=== PATIENT | male | born 1955 | race Caucasian/White ===

== ENCOUNTER 2022-10-30 11:00 | Inpatient (IN) | payer OTHER ==
[~2022-10-30] VITALS: Ht 182.9 cm; Wt 67.6 kg
[2022-10-30] VITALS (15 sets, daily range): BP systolic 81–120; PULSE 46–99; RESP 13–26; TEMP 81.1–96.7; O2SAT 90–100
[2022-10-30] MEDS ORDERED: VECURONIUM BROMIDE 10 MG/VIAL (NORCURON) ONE (11:01)
[2022-10-30] MEDS ORDERED: DEXTROSE 50% JECT 50 ML DISP.SYRIN ONE (11:12)
[2022-10-30] MEDS ORDERED: DEXTROSE 50% JECT 50 ML DISP.SYRIN IVP ONE (11:15)
[2022-10-30] MEDS ORDERED: NACL 0.9% 1,000 ML IV ONE ×2 (11:15→12:45)
[2022-10-30] MEDS ORDERED: SER25 PO (11:34)
[2022-10-30 11:49] LABS: BILIRUBIN,URINE NEGATIVE (NEGATIVE); BLOOD, URINE 1+ (NEGATIVE); CLARITY/URINE CLEAR (CLEAR); COLOR,URINE YELLOW (YELLOW); GLUCOSE,URINE NEGATIVE (NEGATIVE); KETONES,URINE TRACE (NEGATIVE); LEUKOCYTE ESTERASE ,URINE NEGATIVE (NEGATIVE); NITRITE, URINE NEGATIVE (NEGATIVE); PH,URINE 5.5 (5.0-8.0); PROTEIN URINE NEGATIVE (NEGATIVE); UROBILINOGEN,URINE 0.2 (0.2-1.0)
[2022-10-30 11:58] LABS: BACTERIA,URINE FEW /HPF (None Seen); WBC,URINE 0-3 /HPF (0-3)
[2022-10-30 11:59] LABS: MUCUS,URINE 1+ /LPF (None Seen)
[2022-10-30 12:15] LABS: BARBITURATE, URINE NEGATIVE (NEG <=200); BENZODIAZEPINE, URINE POSITIVE (NEG <=150); CANNABINOID, URINE POSITIVE (NEG <=50); COCAINE, URINE NEGATIVE (NEG <=150); METHAMPHETAMINES SCREEN,URINE NEGATIVE (NEG <=500); PHENCYCLIDINE SCREEN,URINE NEGATIVE (NEG <=25); URINE AMPHETAMINE NEGATIVE (NEG <=500); URINE METHADONE NEGATIVE (NEG <=200)
[2022-10-30 12:16] LABS: OPIATE, URINE NEGATIVE (NEG <=100); UR TRICYCLIC ANTIDEPRESSANTS NEGATIVE (NEG <=300); URINE OXYCODONE SCREEN NEGATIVE (NEG <=100); URINE PROPOXYPHENE SCREEN NEGATIVE (NEG <=300)
[2022-10-30 12:20] LABS: BASOPHILS % (AUTO) 0.4 % (0.0-2.0); EOSINOPHILS % (AUTO) 1.1 % (0.0-4.0); HEMATOCRIT 24.7 % (36-54); HEMOGLOBIN 8.3 g/dL (14.0-18.0); LYMPHOCYTES # (AUTO) 0.5 K/uL (1.0-5.5); LYMPHOCYTES % (AUTO) 25.1 % (20.5-51.5); MEAN CORPUSCULAR HEMOGLOBIN 30 pg (27-31); MEAN CORPUSCULAR HGB CONC 33 % (32-36); MEAN CORPUSCULAR VOLUME 90 fL (79.0-98.0); MONOCYTES # (AUTO) 0.1 K/uL (0.0-1.0); MONOCYTES % (AUTO) 4.6 % (1.7-9.3); NEUTROPHILS # (AUTO) 1.4 K/uL (1.8-7.7); NEUTROPHILS % (AUTO) 68.8 % (40.0-70.0); PLATELET COUNT (AUTO) 60 K/uL (130-430); RED BLOOD CELL COUNT(AUTO) 2.74 MIL/uL (4.2-6.2); RED CELL DISTRIBUTION WIDTH 20.2 % (9.0-15.0); WHITE BLOOD COUNT (AUTO) 2.1 K/uL (4.8-10.8)
[2022-10-30 12:28] LABS: INR 1.6 (0.80-1.20); PROTHROMBIN TIME 16.3 SECS (9.5-12.5)
[2022-10-30 12:31] LABS: ACETAMINOPHEN 11 ug/mL (1-30); ALANINE AMINOTRANSFERASE 42 U/L (12-78); ALBUMIN 1.3 g/dL (3.4-4.8); ANION GAP 10 (5-15); ASPARTATE AMINOTRANSFERASE 80 U/L (10-37); C-REACTIVE PROTEIN QUANT 1.7 mg/dL (0-0.5); CHLORIDE 111 mmol/L (98-107); CREATININE 0.96 mg/dL (0.55-1.30); GFR AFRICAN AMERICAN 100 mL/min (>90); GLUCOSE 162 mg/dL (70-99); TOTAL BILIRUBIN 0.8 mg/dL (0.0-1.0); UREA NITROGEN, BLOOD 5 mg/dL (8-21)
[2022-10-30 12:33] LABS: ALCOHOL, BLOOD < 3 mg/dL (<10); CALCIUM 6.8 mg/dL (8.4-11.0)
[2022-10-30] MEDS ORDERED: NOREPINEPHRINE BITARTRATE 4 MG in NS 246 ML IV ONE (12:45)
[2022-10-30 13:14] LABS: CKMB RELATIVE INDEX 5.6 (0.0-2.9); CREATINE KINASE MB 32.3 ng/mL (0-3.6)
[2022-10-30 13:26] LABS: ACETONE, SERUM NEGATIVE (NEGATIVE)
[2022-10-30] MEDS ORDERED: ONDANSETRON HCL 4 MG/2 ML VIAL IVP PRN (14:45)
[2022-10-30] MEDS ORDERED: DOCUSATE SODIUM 100 MG CAPSULE PO PRN (14:45)
[2022-10-30] MEDS ORDERED: MAGNESIUM SULFATE 50 ML IV PRN (14:45)
[2022-10-30] MEDS ORDERED: POTASSIUM CHLORIDE 20 MEQ TAB.PRT.SR PO PRN (14:45)
[2022-10-30] MEDS ORDERED: MORPHINE 2 MG/ML INJ. SYRINGE IVP PRN (14:45)
[2022-10-30] MEDS ORDERED: ZOLPIDEM TARTRATE 5 MG TABLET PO PRN (14:45)
[2022-10-30] MEDS ORDERED: MUPIROCIN 2% TOPICAL OINTMENT 22 GM NS PRN (14:45)
[2022-10-30] MEDS ORDERED: NALOXONE HCL 0.4 MG/ML AMP (NARCAN) IVP PRN ×2 (14:45)
[2022-10-30] MEDS ORDERED: ACETAMINOPHEN 325 MG TABLET PO PRN ×2 (14:45→15:00)
[2022-10-30] MEDS ORDERED: VANCOMYCIN HCL 1,250 MG in NS 250 ML IV ONE (15:00)
[2022-10-30] MEDS ORDERED: CALCIUM GLUCONATE 1 GM in NS 100 ML IV ONE (16:00)
[2022-10-30 16:50] LABS: TOTAL IRON BIND. CAPACITY 77 ug/dL (250-450)
[2022-10-30] MEDS: D5/0.45 NS 1,000 ML IV SCH (17:53)
[2022-10-30] MEDS ORDERED: PIPERACILLIN/TAZO 3.375/DEX-IS 50 ML IV SCH (18:00)
[2022-10-30] MEDS ORDERED: DOPamine PREMIX 250 ML IV PRN (19:00)
[2022-10-30] MEDS: VANCOMYCIN HCL 750 MG in NS 250 ML IV SCH (19:44)
[2022-10-30] MEDS: CEFEPIME 2 GM in D5W 100 ML IV SCH (20:56)
[2022-10-30] MEDS: QUEtiapine FUMARATE 25 MG TABLET PO SCH (20:57)
[2022-10-30] MEDS ORDERED: NOREPINEPHRINE BITARTRATE 4 MG in D5W 246 ML IV PRN (21:00)
[2022-10-31] VITALS (31 sets, daily range): BP systolic 75–148; PULSE 42–110; RESP 1–26; TEMP 96.8–98.1; O2SAT 93–98
[2022-10-31] MEDS: D5/0.45 NS 1,000 ML IV SCH ×3 (01:12→16:25)
[2022-10-31] MEDS: LORazepam 2 MG/ML VIAL IVP PRN ×4 (01:46→20:30)
[2022-10-31] MEDS: MORPHINE 2 MG/ML INJ. SYRINGE IVP PRN ×2 (03:43→23:59)
[2022-10-31] MEDS: VANCOMYCIN HCL 750 MG in NS 250 ML IV SCH ×2 (05:53→18:45)
[2022-10-31 06:27] LABS: BASOPHILS # (AUTO) 0.1 K/uL (0.0-0.2); BASOPHILS % (AUTO) 1.2 % (0.0-2.0); HEMATOCRIT 35.4 % (36-54); HEMOGLOBIN 11.9 g/dL (14.0-18.0); LYMPHOCYTES # (AUTO) 0.6 K/uL (1.0-5.5); LYMPHOCYTES % (AUTO) 6.4 % (20.5-51.5); MEAN CORPUSCULAR HEMOGLOBIN 30 pg (27-31); MEAN CORPUSCULAR HGB CONC 34 % (32-36); MEAN CORPUSCULAR VOLUME 89 fL (79.0-98.0); MONOCYTES # (AUTO) 0.8 K/uL (0.0-1.0); MONOCYTES % (AUTO) 8.3 % (1.7-9.3); NEUTROPHILS # (AUTO) 7.6 K/uL (1.8-7.7); NEUTROPHILS % (AUTO) 84.1 % (40.0-70.0); PLATELET COUNT (AUTO) 134 K/uL (130-430); RED BLOOD CELL COUNT(AUTO) 3.97 MIL/uL (4.2-6.2); RED CELL DISTRIBUTION WIDTH 20.3 % (9.0-15.0); WHITE BLOOD COUNT (AUTO) 9.1 K/uL (4.8-10.8)
[2022-10-31 06:49] LABS: CREATININE 1.31 mg/dL (0.55-1.30)
[2022-10-31 06:55] LABS: INR 1.2 (0.80-1.20); PROTHROMBIN TIME 12.5 SECS (9.5-12.5)
[2022-10-31] MEDS ORDERED: LEVOTHYROXINE SODIUM 100 MCG/5 ML VIAL IVP ONE ×3 (08:00→08:30)
[2022-10-31 08:06] LABS: FERRITIN 1607 ng/mL (30-400)
[2022-10-31] MEDS ORDERED: methylPREDNISolone SOD SUCC/PF 62.5 MG/ML VIAL IVP ONE (08:15)
[2022-10-31] MEDS: CEFEPIME 2 GM in D5W 100 ML IV SCH ×2 (08:21→22:01)
[2022-10-31] MEDS: PANTOPRAZOLE SODIUM 40 MG/VIAL (PROTONIX) IVP SCH (08:25)
[2022-10-31] MEDS: HEPARIN SODIUM,PORCINE 5,000 UNITS/ML VIAL SUBCUT SCH ×2 (08:34→22:02)
[2022-10-31] MEDS: LACTULOSE 20 GM/30 ML UDC PO SCH ×2 (09:37→22:01)
[2022-10-31] MEDS: ALBUMIN HUMAN 25% 50 ML IV SCH ×3 (11:15→22:02)
[2022-10-31] MEDS: methylPREDNISolone SOD SUCC/PF 62.5 MG/ML VIAL IVP SCH ×2 (11:17→18:45)
[2022-10-31] MEDS: QUEtiapine FUMARATE 25 MG TABLET PO SCH (22:01)
[2022-11-01] VITALS (39 sets, daily range): BP systolic 72–141; PULSE 83–116; RESP 12–20; TEMP 96.9–97.6; O2SAT 90–98
[2022-11-01] MEDS: LORazepam 2 MG/ML VIAL IVP PRN (00:05)
[2022-11-01 00:06] LABS: FOLATE (FOLIC ACID) 5.1 ng/mL (>3.0)
[2022-11-01] MEDS: methylPREDNISolone SOD SUCC/PF 62.5 MG/ML VIAL IVP SCH ×2 (00:54→06:31)
[2022-11-01 05:46] LABS: BASOPHILS % (AUTO) 0.1 % (0.0-2.0); HEMOGLOBIN 10.1 g/dL (14.0-18.0); LYMPHOCYTES # (AUTO) 0.6 K/uL (1.0-5.5); LYMPHOCYTES % (AUTO) 4.8 % (20.5-51.5); MEAN CORPUSCULAR HEMOGLOBIN 30 pg (27-31); MEAN CORPUSCULAR HGB CONC 34 % (32-36); MEAN CORPUSCULAR VOLUME 90 fL (79.0-98.0); MONOCYTES # (AUTO) 0.1 K/uL (0.0-1.0); MONOCYTES % (AUTO) 1.1 % (1.7-9.3); NEUTROPHILS # (AUTO) 11.2 K/uL (1.8-7.7); PLATELET COUNT (AUTO) 101 K/uL (130-430); RED BLOOD CELL COUNT(AUTO) 3.34 MIL/uL (4.2-6.2); RED CELL DISTRIBUTION WIDTH 20.1 % (9.0-15.0); WHITE BLOOD COUNT (AUTO) 11.9 K/uL (4.8-10.8)
[2022-11-01 06:02] LABS: CALCIUM 7.5 mg/dL (8.4-11.0); CREATININE 1.57 mg/dL (0.55-1.30)
[2022-11-01 06:06] LABS: ALBUMIN 2.7 g/dL (3.4-4.8); TOTAL BILIRUBIN 0.9 mg/dL (0.0-1.0)
[2022-11-01] MEDS: VANCOMYCIN HCL 750 MG in NS 250 ML IV SCH (06:32)
[2022-11-01] MEDS: D5/0.45 NS 1,000 ML IV SCH ×2 (06:33→12:09)
[2022-11-01] MEDS ORDERED: methylPREDNISolone SOD SUCC/PF 62.5 MG/ML VIAL IVP SCH (09:00)
[2022-11-01] MEDS: LEVOTHYROXINE SODIUM 100 MCG/5 ML VIAL IVP SCH (09:00)
[2022-11-01] MEDS: CEFEPIME 2 GM in D5W 100 ML IV SCH ×2 (09:06→21:13)
[2022-11-01] MEDS: LACTULOSE 20 GM/30 ML UDC PO SCH ×2 (09:06→21:15)
[2022-11-01] MEDS: METHYLPREDNISOLONE SOD SUCC 40 MG/ML VIAL IVP SCH ×2 (09:07→21:14)
[2022-11-01] MEDS: PANTOPRAZOLE SODIUM 40 MG/VIAL (PROTONIX) IVP SCH (09:07)
[2022-11-01] MEDS: HEPARIN SODIUM,PORCINE 5,000 UNITS/ML VIAL SUBCUT SCH ×2 (09:08→21:17)
[2022-11-01] MEDS: THIAMINE HCL 100 MG TABLET PO SCH (09:24)
[2022-11-01] MEDS: DOPamine PREMIX 250 ML IV PRN ×2 (12:08→21:46)
[2022-11-01] MEDS ORDERED: DEXTROSE 50% JECT 50 ML DISP.SYRIN IVP PRN (12:15)
[2022-11-01] MEDS ORDERED: D5W 1,000 ML IV PRN (12:15)
[2022-11-01] MEDS: INSULIN REGULAR, HUMAN 100 UNITS/ML, 3 ML VIAL (humuLIN R) SUBCUT PRN ×2 (12:31→17:30)
[2022-11-01] MEDS: QUEtiapine FUMARATE 25 MG TABLET PO SCH (21:15)
[2022-11-01] MEDS: PROPOFOL DRIP 100 ML IV PRN (21:50)
[2022-11-02] VITALS (42 sets, daily range): BP systolic 83–138; PULSE 71–93; RESP 11–28; TEMP 95.1–97.8; O2SAT 95–99
[2022-11-02] MEDS: VANCOMYCIN HCL 1,000 MG in NS 250 ML IV SCH (05:33)
[2022-11-02] MEDS: INSULIN REGULAR, HUMAN 100 UNITS/ML, 3 ML VIAL (humuLIN R) SUBCUT PRN (05:39)
[2022-11-02 05:40] LABS: BASOPHILS % (AUTO) 0.1 % (0.0-2.0); EOSINOPHILS % (AUTO) 0.1 % (0.0-4.0); HEMATOCRIT 25.3 % (36-54); HEMOGLOBIN 8.2 g/dL (14.0-18.0); LYMPHOCYTES # (AUTO) 0.4 K/uL (1.0-5.5); LYMPHOCYTES % (AUTO) 2.1 % (20.5-51.5); MEAN CORPUSCULAR HEMOGLOBIN 29 pg (27-31); MEAN CORPUSCULAR HGB CONC 33 % (32-36); MEAN CORPUSCULAR VOLUME 90 fL (79.0-98.0); MONOCYTES # (AUTO) 0.3 K/uL (0.0-1.0); MONOCYTES % (AUTO) 1.5 % (1.7-9.3); NEUTROPHILS # (AUTO) 17.9 K/uL (1.8-7.7); NEUTROPHILS % (AUTO) 96.2 % (40.0-70.0); PLATELET COUNT (AUTO) 83 K/uL (130-430); RED CELL DISTRIBUTION WIDTH 20.7 % (9.0-15.0); WHITE BLOOD COUNT (AUTO) 18.6 K/uL (4.8-10.8)
[2022-11-02 06:03] LABS: PROTHROMBIN TIME 10.4 SECS (9.5-12.5)
[2022-11-02 06:05] LABS: ALBUMIN 2.2 g/dL (3.4-4.8); CALCIUM 7.5 mg/dL (8.4-11.0); CREATININE 1.48 mg/dL (0.55-1.30); TOTAL BILIRUBIN 0.7 mg/dL (0.0-1.0)
[2022-11-02] MEDS: HEPARIN SODIUM,PORCINE 5,000 UNITS/ML VIAL SUBCUT SCH ×2 (07:37→21:31)
[2022-11-02] MEDS ORDERED: LEVOTHYROXINE SODIUM 100 MCG/5 ML VIAL IVP SCH (09:00)
[2022-11-02] MEDS: LEVOTHYROXINE SODIUM 100 MCG/5 ML VIAL IVP SCH (09:57)
[2022-11-02] MEDS: METHYLPREDNISOLONE SOD SUCC 40 MG/ML VIAL IVP SCH ×2 (09:57→21:28)
[2022-11-02] MEDS: THIAMINE HCL 100 MG TABLET PO SCH (09:57)
[2022-11-02] MEDS: PANTOPRAZOLE SODIUM 40 MG/VIAL (PROTONIX) IVP SCH (09:57)
[2022-11-02] MEDS: CEFEPIME 2 GM in D5W 100 ML IV SCH ×2 (09:57→21:27)
[2022-11-02] MEDS: LACTULOSE 20 GM/30 ML UDC PO SCH ×2 (09:57→21:29)
[2022-11-02] MEDS: FLUCONAZOLE 200 mg/ NS 100 ML IV SCH (13:34)
[2022-11-02] MEDS: PROPOFOL DRIP 100 ML IV PRN ×2 (14:00→18:49)
[2022-11-02] MEDS: DOPamine PREMIX 250 ML IV PRN (19:31)
[2022-11-02] MEDS: QUEtiapine FUMARATE 25 MG TABLET PO SCH (21:29)
[2022-11-03] VITALS (33 sets, daily range): BP systolic 91–120; PULSE 64–97; RESP 14–28; TEMP 96.1–97.5; O2SAT 91–99
[2022-11-03] MEDS: VANCOMYCIN HCL 1,000 MG in NS 250 ML IV SCH (05:43)
[2022-11-03 06:19] LABS: LYMPHOCYTES # (AUTO) 0.4 K/uL (1.0-5.5); LYMPHOCYTES % (AUTO) 2.6 % (20.5-51.5); NEUTROPHILS # (AUTO) 15.8 K/uL (1.8-7.7)
[2022-11-03 06:37] LABS: BASOPHILS # (AUTO) 0.1 K/uL (0.0-0.2); BASOPHILS % (AUTO) 0.5 % (0.0-2.0); HEMATOCRIT 24.6 % (36-54); MEAN CORPUSCULAR HEMOGLOBIN 30 pg (27-31); MEAN CORPUSCULAR HGB CONC 33 % (32-36); MEAN CORPUSCULAR VOLUME 91 fL (79.0-98.0); MONOCYTES # (AUTO) 0.1 K/uL (0.0-1.0); MONOCYTES % (AUTO) 0.7 % (1.7-9.3); NEUTROPHILS % (AUTO) 96.2 % (40.0-70.0); PLATELET COUNT (AUTO) 84 K/uL (130-430); RED CELL DISTRIBUTION WIDTH 20.9 % (9.0-15.0); WHITE BLOOD COUNT (AUTO) 16.4 K/uL (4.8-10.8)
[2022-11-03 06:57] LABS: CREATININE 1.46 mg/dL (0.55-1.30)
[2022-11-03] MEDS ORDERED: POTASSIUM CHLORIDE 40 MEQ in D5W 250 ML IV ONE (08:00)
[2022-11-03] MEDS: HEPARIN SODIUM,PORCINE 5,000 UNITS/ML VIAL SUBCUT SCH ×2 (09:00→21:00)
[2022-11-03] MEDS: CEFEPIME 2 GM in D5W 100 ML IV SCH ×2 (09:08→21:46)
[2022-11-03] MEDS: METHYLPREDNISOLONE SOD SUCC 40 MG/ML VIAL IVP SCH ×2 (09:08→21:46)
[2022-11-03] MEDS: PANTOPRAZOLE SODIUM 40 MG/VIAL (PROTONIX) IVP SCH (09:08)
[2022-11-03] MEDS: LEVOTHYROXINE SODIUM 100 MCG/5 ML VIAL IVP SCH (09:09)
[2022-11-03] MEDS: THIAMINE HCL 100 MG TABLET PO SCH (09:09)
[2022-11-03] MEDS: LACTULOSE 20 GM/30 ML UDC PO SCH ×2 (09:09→21:46)
[2022-11-03] MEDS: PROPOFOL DRIP 100 ML IV PRN (11:24)
[2022-11-03] MEDS: FLUCONAZOLE 200 mg/ NS 100 ML IV SCH (14:21)
[2022-11-03] MEDS: QUEtiapine FUMARATE 25 MG TABLET PO SCH (21:46)
[2022-11-04] VITALS (33 sets, daily range): BP systolic 84–126; PULSE 59–99; RESP 11–27; TEMP 97.2–98.2; O2SAT 93–99
[2022-11-04] MEDS: PROPOFOL DRIP 100 ML IV PRN ×4 (01:06→18:41)
[2022-11-04 05:39] LABS: BASOPHILS % (AUTO) 0.2 % (0.0-2.0); HEMATOCRIT 22.8 % (36-54); HEMOGLOBIN 7.6 g/dL (14.0-18.0); LYMPHOCYTES # (AUTO) 0.9 K/uL (1.0-5.5); LYMPHOCYTES % (AUTO) 5.8 % (20.5-51.5); MEAN CORPUSCULAR HEMOGLOBIN 30 pg (27-31); MEAN CORPUSCULAR HGB CONC 33 % (32-36); MEAN CORPUSCULAR VOLUME 90 fL (79.0-98.0); MONOCYTES # (AUTO) 0.5 K/uL (0.0-1.0); MONOCYTES % (AUTO) 3.1 % (1.7-9.3); NEUTROPHILS # (AUTO) 14.3 K/uL (1.8-7.7); NEUTROPHILS % (AUTO) 90.9 % (40.0-70.0); PLATELET COUNT (AUTO) 85 K/uL (130-430); RED BLOOD CELL COUNT(AUTO) 2.54 MIL/uL (4.2-6.2); RED CELL DISTRIBUTION WIDTH 20.9 % (9.0-15.0); WHITE BLOOD COUNT (AUTO) 15.8 K/uL (4.8-10.8)
[2022-11-04 06:13] LABS: CALCIUM 8.2 mg/dL (8.4-11.0); CREATININE 1.54 mg/dL (0.55-1.30)
[2022-11-04] MEDS: VANCOMYCIN HCL 1,000 MG in NS 250 ML IV SCH (06:37)
[2022-11-04] MEDS: PANTOPRAZOLE SODIUM 40 MG/VIAL (PROTONIX) IVP SCH (09:41)
[2022-11-04] MEDS: METHYLPREDNISOLONE SOD SUCC 40 MG/ML VIAL IVP SCH ×2 (09:41→21:37)
[2022-11-04] MEDS: THIAMINE HCL 100 MG TABLET PO SCH (09:41)
[2022-11-04] MEDS: LACTULOSE 20 GM/30 ML UDC PO SCH ×2 (09:41→21:42)
[2022-11-04] MEDS: CEFEPIME 2 GM in D5W 100 ML IV SCH ×2 (09:43→21:42)
[2022-11-04] MEDS: LEVOTHYROXINE SODIUM 100 MCG/5 ML VIAL IVP SCH (09:44)
[2022-11-04] MEDS: HEPARIN SODIUM,PORCINE 5,000 UNITS/ML VIAL SUBCUT SCH ×2 (11:57→21:00)
[2022-11-04] MEDS: FLUCONAZOLE 200 mg/ NS 100 ML IV SCH (12:10)
[2022-11-04] MEDS: QUEtiapine FUMARATE 25 MG TABLET PO SCH (21:37)
[2022-11-05] VITALS (35 sets, daily range): BP systolic 93–147; PULSE 51–87; RESP 7–21; TEMP 96.4–97.9; O2SAT 94–100
[2022-11-05] MEDS: PROPOFOL DRIP 100 ML IV PRN (01:22)
[2022-11-05 05:18] LABS: BASOPHILS % (AUTO) 0.1 % (0.0-2.0); HEMATOCRIT 22.4 % (36-54); HEMOGLOBIN 7.3 g/dL (14.0-18.0); LYMPHOCYTES % (AUTO) 7.8 % (20.5-51.5); MEAN CORPUSCULAR HEMOGLOBIN 30 pg (27-31); MEAN CORPUSCULAR HGB CONC 33 % (32-36); MEAN CORPUSCULAR VOLUME 91 fL (79.0-98.0); MONOCYTES # (AUTO) 0.4 K/uL (0.0-1.0); MONOCYTES % (AUTO) 3.2 % (1.7-9.3); NEUTROPHILS # (AUTO) 11.5 K/uL (1.8-7.7); NEUTROPHILS % (AUTO) 88.9 % (40.0-70.0); PLATELET COUNT (AUTO) 72 K/uL (130-430); RED BLOOD CELL COUNT(AUTO) 2.47 MIL/uL (4.2-6.2); RED CELL DISTRIBUTION WIDTH 21.1 % (9.0-15.0); WHITE BLOOD COUNT (AUTO) 12.9 K/uL (4.8-10.8)
[2022-11-05 05:44] LABS: CALCIUM 7.8 mg/dL (8.4-11.0); CREATININE 1.44 mg/dL (0.55-1.30)
[2022-11-05] MEDS: THIAMINE HCL 100 MG TABLET PO SCH (09:11)
[2022-11-05] MEDS: CEFEPIME 2 GM in D5W 100 ML IV SCH ×2 (09:11→20:52)
[2022-11-05] MEDS: LACTULOSE 20 GM/30 ML UDC PO SCH ×2 (09:12→21:00)
[2022-11-05] MEDS: METHYLPREDNISOLONE SOD SUCC 40 MG/ML VIAL IVP SCH ×2 (09:12→20:52)
[2022-11-05] MEDS: PANTOPRAZOLE SODIUM 40 MG/VIAL (PROTONIX) IVP SCH (09:12)
[2022-11-05] MEDS: HEPARIN SODIUM,PORCINE 5,000 UNITS/ML VIAL SUBCUT SCH ×2 (09:15→20:54)
[2022-11-05] MEDS: LEVOTHYROXINE SODIUM 100 MCG/5 ML VIAL IVP SCH (09:16)
[2022-11-05] MEDS ORDERED: THEOPHYLLINE ANHYDROUS 80 MG/15 ML UDC PO ONE (09:30)
[2022-11-05] MEDS: FLUCONAZOLE 200 mg/ NS 100 ML IV SCH (13:46)
[2022-11-05] MEDS: FENTANYL CITRATE-0.9 % NACL/PF 100 ML IV PRN (14:41)
[2022-11-05] MEDS: MIDAZOLAM IN NACL,ISO-OSMOT/PF 100 ML IV PRN (14:50)
[2022-11-05] MEDS: QUEtiapine FUMARATE 25 MG TABLET PO SCH (21:00)
[2022-11-05] MEDS: THEOPHYLLINE ANHYDROUS 80 MG/15 ML UDC PO SCH (21:00)
[2022-11-06] VITALS (33 sets, daily range): BP systolic 104–133; PULSE 61–93; RESP 12–21; TEMP 97.4–98.9; O2SAT 93–100
[2022-11-06] MEDS: FENTANYL CITRATE-0.9 % NACL/PF 100 ML IV PRN ×2 (06:01→20:03)
[2022-11-06 06:13] LABS: HEMATOCRIT 25.3 % (36-54); HEMOGLOBIN 8.1 g/dL (14.0-18.0); LYMPHOCYTES % (AUTO) 4.8 % (20.5-51.5); MEAN CORPUSCULAR HEMOGLOBIN 29 pg (27-31); MEAN CORPUSCULAR HGB CONC 32 % (32-36); MEAN CORPUSCULAR VOLUME 92 fL (79.0-98.0); MONOCYTES # (AUTO) 0.6 K/uL (0.0-1.0); MONOCYTES % (AUTO) 3.1 % (1.7-9.3); NEUTROPHILS # (AUTO) 18.1 K/uL (1.8-7.7); NEUTROPHILS % (AUTO) 92.1 % (40.0-70.0); PLATELET COUNT (AUTO) 81 K/uL (130-430); RED BLOOD CELL COUNT(AUTO) 2.77 MIL/uL (4.2-6.2); WHITE BLOOD COUNT (AUTO) 19.7 K/uL (4.8-10.8)
[2022-11-06 06:44] LABS: CREATININE 1.46 mg/dL (0.55-1.30); TOTAL BILIRUBIN 0.5 mg/dL (0.0-1.0)
[2022-11-06] MEDS ORDERED: PROPOFOL DRIP 100 ML IV PRN (07:45)
[2022-11-06] MEDS: CEFEPIME 2 GM in D5W 100 ML IV SCH ×2 (11:51→20:45)
[2022-11-06] MEDS: LEVOTHYROXINE SODIUM 100 MCG/5 ML VIAL IVP SCH (11:52)
[2022-11-06] MEDS: METHYLPREDNISOLONE SOD SUCC 40 MG/ML VIAL IVP SCH ×2 (11:52→20:46)
[2022-11-06] MEDS: PANTOPRAZOLE SODIUM 40 MG/VIAL (PROTONIX) IVP SCH (11:52)
[2022-11-06] MEDS: THIAMINE HCL 100 MG TABLET PO SCH (11:53)
[2022-11-06] MEDS: THEOPHYLLINE ANHYDROUS 80 MG/15 ML UDC PO SCH ×2 (11:53→20:46)
[2022-11-06] MEDS: LACTULOSE 20 GM/30 ML UDC PO SCH ×2 (11:53→20:46)
[2022-11-06] MEDS: HEPARIN SODIUM,PORCINE 5,000 UNITS/ML VIAL SUBCUT SCH ×2 (11:54→20:48)
[2022-11-06] MEDS: FLUCONAZOLE 200 mg/ NS 100 ML IV SCH ×2 (12:33→13:40)
[2022-11-06] MEDS: QUEtiapine FUMARATE 25 MG TABLET PO SCH (20:46)
[2022-11-07] VITALS (34 sets, daily range): BP systolic 121–152; PULSE 79–98; RESP 8–16; TEMP 97.6–98.1; O2SAT 87–100
[2022-11-07] MEDS: FENTANYL CITRATE-0.9 % NACL/PF 100 ML IV PRN ×2 (05:00→23:33)
[2022-11-07 05:13] LABS: BASOPHILS % (AUTO) 0.2 % (0.0-2.0); HEMATOCRIT 24.8 % (36-54); LYMPHOCYTES # (AUTO) 0.5 K/uL (1.0-5.5); LYMPHOCYTES % (AUTO) 3.2 % (20.5-51.5); MEAN CORPUSCULAR HEMOGLOBIN 30 pg (27-31); MEAN CORPUSCULAR HGB CONC 32 % (32-36); MEAN CORPUSCULAR VOLUME 93 fL (79.0-98.0); MONOCYTES # (AUTO) 0.7 K/uL (0.0-1.0); MONOCYTES % (AUTO) 4.9 % (1.7-9.3); NEUTROPHILS # (AUTO) 13.8 K/uL (1.8-7.7); NEUTROPHILS % (AUTO) 91.7 % (40.0-70.0); PLATELET COUNT (AUTO) 81 K/uL (130-430); RED BLOOD CELL COUNT(AUTO) 2.66 MIL/uL (4.2-6.2); RED CELL DISTRIBUTION WIDTH 21.8 % (9.0-15.0)
[2022-11-07 05:35] LABS: CALCIUM 8.4 mg/dL (8.4-11.0); CREATININE 1.72 mg/dL (0.55-1.30)
[2022-11-07] MEDS: CEFEPIME 2 GM in D5W 100 ML IV SCH ×2 (08:38→21:19)
[2022-11-07] MEDS: LACTULOSE 20 GM/30 ML UDC PO SCH ×2 (09:11→21:20)
[2022-11-07] MEDS: METHYLPREDNISOLONE SOD SUCC 40 MG/ML VIAL IVP SCH ×2 (09:12→21:20)
[2022-11-07] MEDS: PANTOPRAZOLE SODIUM 40 MG/VIAL (PROTONIX) IVP SCH (09:12)
[2022-11-07] MEDS: THIAMINE HCL 100 MG TABLET PO SCH (09:15)
[2022-11-07] MEDS: HEPARIN SODIUM,PORCINE 5,000 UNITS/ML VIAL SUBCUT SCH ×2 (09:15→21:36)
[2022-11-07] MEDS: LEVOTHYROXINE SODIUM 100 MCG/5 ML VIAL IVP SCH (09:51)
[2022-11-07] MEDS: THEOPHYLLINE ANHYDROUS 80 MG/15 ML UDC PO SCH ×2 (09:51→21:20)
[2022-11-07] MEDS: FLUCONAZOLE 200 mg/ NS 100 ML IV SCH (12:04)
[2022-11-07] MEDS: QUEtiapine FUMARATE 25 MG TABLET PO SCH (21:20)
[2022-11-07] MEDS: MIDAZOLAM IN NACL,ISO-OSMOT/PF 100 ML IV PRN (23:35)
[2022-11-08] VITALS (37 sets, daily range): BP systolic 125–159; PULSE 77–107; RESP 12–30; TEMP 97–98.8; O2SAT 90–99
[2022-11-08 05:13] LABS: BASOPHILS % (AUTO) 0.3 % (0.0-2.0); HEMATOCRIT 24.1 % (36-54); HEMOGLOBIN 7.6 g/dL (14.0-18.0); LYMPHOCYTES # (AUTO) 0.4 K/uL (1.0-5.5); LYMPHOCYTES % (AUTO) 2.5 % (20.5-51.5); MEAN CORPUSCULAR HEMOGLOBIN 30 pg (27-31); MEAN CORPUSCULAR HGB CONC 32 % (32-36); MEAN CORPUSCULAR VOLUME 93 fL (79.0-98.0); MONOCYTES # (AUTO) 0.7 K/uL (0.0-1.0); MONOCYTES % (AUTO) 4.5 % (1.7-9.3); NEUTROPHILS # (AUTO) 14.9 K/uL (1.8-7.7); NEUTROPHILS % (AUTO) 92.7 % (40.0-70.0); PLATELET COUNT (AUTO) 94 K/uL (130-430); RED BLOOD CELL COUNT(AUTO) 2.58 MIL/uL (4.2-6.2); RED CELL DISTRIBUTION WIDTH 20.6 % (9.0-15.0); WHITE BLOOD COUNT (AUTO) 16.1 K/uL (4.8-10.8)
[2022-11-08 05:36] LABS: CALCIUM 8.5 mg/dL (8.4-11.0); CREATININE 1.63 mg/dL (0.55-1.30)
[2022-11-08] MEDS: CEFEPIME 2 GM in D5W 100 ML IV SCH ×2 (08:55→20:12)
[2022-11-08] MEDS: PANTOPRAZOLE SODIUM 40 MG/VIAL (PROTONIX) IVP SCH (08:55)
[2022-11-08] MEDS: METHYLPREDNISOLONE SOD SUCC 40 MG/ML VIAL IVP SCH ×2 (08:55→20:11)
[2022-11-08] MEDS: THIAMINE HCL 100 MG TABLET PO SCH (09:00)
[2022-11-08] MEDS: LACTULOSE 20 GM/30 ML UDC PO SCH ×2 (09:01→20:11)
[2022-11-08] MEDS: THEOPHYLLINE ANHYDROUS 80 MG/15 ML UDC PO SCH ×2 (09:02→20:11)
[2022-11-08] MEDS: HEPARIN SODIUM,PORCINE 5,000 UNITS/ML VIAL SUBCUT SCH ×2 (09:17→20:13)
[2022-11-08] MEDS: LEVOTHYROXINE SODIUM 100 MCG/5 ML VIAL IVP SCH (09:19)
[2022-11-08] MEDS: FLUCONAZOLE 200 mg/ NS 100 ML IV SCH (13:30)
[2022-11-08] MEDS: QUEtiapine FUMARATE 25 MG TABLET PO SCH (20:12)
[2022-11-09] VITALS (38 sets, daily range): BP systolic 114–162; PULSE 81–125; RESP 12–19; TEMP 97.4–98.4; O2SAT 93–99
[2022-11-09] MEDS: FENTANYL CITRATE-0.9 % NACL/PF 100 ML IV PRN ×2 (00:26→15:45)
[2022-11-09] MEDS: MIDAZOLAM IN NACL,ISO-OSMOT/PF 100 ML IV PRN (04:34)
[2022-11-09 05:49] LABS: CALCIUM 8.5 mg/dL (8.4-11.0); CREATININE 1.66 mg/dL (0.55-1.30)
[2022-11-09 05:50] LABS: HEMATOCRIT 22.2 % (36-54); HEMOGLOBIN 7.2 g/dL (14.0-18.0); LYMPHOCYTES # (AUTO) 0.6 K/uL (1.0-5.5); LYMPHOCYTES % (AUTO) 3.7 % (20.5-51.5); MEAN CORPUSCULAR HEMOGLOBIN 30 pg (27-31); MEAN CORPUSCULAR HGB CONC 32 % (32-36); MEAN CORPUSCULAR VOLUME 92 fL (79.0-98.0); MONOCYTES # (AUTO) 0.7 K/uL (0.0-1.0); NEUTROPHILS # (AUTO) 13.8 K/uL (1.8-7.7); NEUTROPHILS % (AUTO) 91.3 % (40.0-70.0); PLATELET COUNT (AUTO) 103 K/uL (130-430); RED BLOOD CELL COUNT(AUTO) 2.42 MIL/uL (4.2-6.2); WHITE BLOOD COUNT (AUTO) 15.1 K/uL (4.8-10.8)
[2022-11-09] MEDS: LACTULOSE 20 GM/30 ML UDC PO SCH ×2 (08:06→20:09)
[2022-11-09] MEDS: THIAMINE HCL 100 MG TABLET PO SCH (08:06)
[2022-11-09] MEDS: LEVOTHYROXINE SODIUM 100 MCG/5 ML VIAL IVP SCH (08:07)
[2022-11-09] MEDS: METHYLPREDNISOLONE SOD SUCC 40 MG/ML VIAL IVP SCH ×2 (08:07→20:08)
[2022-11-09] MEDS: PANTOPRAZOLE SODIUM 40 MG/VIAL (PROTONIX) IVP SCH (08:07)
[2022-11-09] MEDS: CEFEPIME 2 GM in D5W 100 ML IV SCH ×2 (08:08→20:08)
[2022-11-09] MEDS: THEOPHYLLINE ANHYDROUS 80 MG/15 ML UDC PO SCH ×2 (08:08→20:08)
[2022-11-09] MEDS: HEPARIN SODIUM,PORCINE 5,000 UNITS/ML VIAL SUBCUT SCH ×2 (08:10→20:10)
[2022-11-09] MEDS: FLUCONAZOLE 200 mg/ NS 100 ML IV SCH (12:09)
[2022-11-09] MEDS: LORazepam 2 MG/ML VIAL IVP PRN (16:10)
[2022-11-09] MEDS: QUEtiapine FUMARATE 25 MG TABLET PO SCH (20:08)
[2022-11-10] VITALS (36 sets, daily range): BP systolic 112–178; PULSE 74–126; RESP 13–20; TEMP 96.9–98.1; O2SAT 93–99
[2022-11-10] MEDS: FENTANYL CITRATE-0.9 % NACL/PF 100 ML IV PRN ×3 (00:06→17:19)
[2022-11-10] MEDS: MIDAZOLAM IN NACL,ISO-OSMOT/PF 100 ML IV PRN (04:27)
[2022-11-10 06:03] LABS: BASOPHILS % (AUTO) 0.1 % (0.0-2.0); LYMPHOCYTES # (AUTO) 0.4 K/uL (1.0-5.5); LYMPHOCYTES % (AUTO) 3.4 % (20.5-51.5); MEAN CORPUSCULAR HEMOGLOBIN 30 pg (27-31); MEAN CORPUSCULAR HGB CONC 32 % (32-36); MEAN CORPUSCULAR VOLUME 93 fL (79.0-98.0); MONOCYTES # (AUTO) 0.9 K/uL (0.0-1.0); MONOCYTES % (AUTO) 6.8 % (1.7-9.3); NEUTROPHILS % (AUTO) 89.7 % (40.0-70.0); PLATELET COUNT (AUTO) 112 K/uL (130-430); RED BLOOD CELL COUNT(AUTO) 2.17 MIL/uL (4.2-6.2); RED CELL DISTRIBUTION WIDTH 21.6 % (9.0-15.0); WHITE BLOOD COUNT (AUTO) 13.3 K/uL (4.8-10.8)
[2022-11-10 06:12] LABS: PROTHROMBIN TIME 9.9 SECS (9.5-12.5)
[2022-11-10 06:19] LABS: ALBUMIN 1.6 g/dL (3.4-4.8); CALCIUM 8.6 mg/dL (8.4-11.0); CREATININE 1.64 mg/dL (0.55-1.30); HEMATOCRIT 20.2 % (36-54); TOTAL BILIRUBIN 0.4 mg/dL (0.0-1.0)
[2022-11-10 06:20] LABS: HEMOGLOBIN 6.5 g/dL (14.0-18.0)
[2022-11-10] MEDS: METHYLPREDNISOLONE SOD SUCC 40 MG/ML VIAL IVP SCH (08:33)
[2022-11-10] MEDS: PANTOPRAZOLE SODIUM 40 MG/VIAL (PROTONIX) IVP SCH (08:33)
[2022-11-10] MEDS: CEFEPIME 2 GM in D5W 100 ML IV SCH ×2 (08:34→21:48)
[2022-11-10] MEDS: THIAMINE HCL 100 MG TABLET PO SCH (08:34)
[2022-11-10] MEDS: HEPARIN SODIUM,PORCINE 5,000 UNITS/ML VIAL SUBCUT SCH ×2 (08:34→22:00)
[2022-11-10] MEDS: LACTULOSE 20 GM/30 ML UDC PO SCH ×2 (08:34→21:49)
[2022-11-10] MEDS: THEOPHYLLINE ANHYDROUS 80 MG/15 ML UDC PO SCH ×2 (08:36→21:49)
[2022-11-10] MEDS: LEVOTHYROXINE SODIUM 100 MCG/5 ML VIAL IVP SCH (08:36)
[2022-11-10] MEDS ORDERED: METOPROLOL TARTRATE 25 MG TABLET PO ONE (11:15)
[2022-11-10] MEDS: FLUCONAZOLE 200 mg/ NS 100 ML IV SCH (14:33)
[2022-11-10 19:59] LABS: HEMATOCRIT 23.9 % (36-54)
[2022-11-10] MEDS: METOPROLOL TARTRATE 25 MG TABLET PO SCH (21:50)
[2022-11-10] MEDS: QUEtiapine FUMARATE 25 MG TABLET PO SCH (21:51)
[2022-11-11] VITALS (33 sets, daily range): BP systolic 11–151; PULSE 60–97; RESP 14–18; TEMP 96.7–98.6; O2SAT 95–99
[2022-11-11] MEDS: FENTANYL CITRATE-0.9 % NACL/PF 100 ML IV PRN ×2 (03:56→18:21)
[2022-11-11] MEDS: MIDAZOLAM IN NACL,ISO-OSMOT/PF 100 ML IV PRN ×2 (03:59→20:37)
[2022-11-11 04:41] LABS: BASOPHILS # (AUTO) 0.1 K/uL (0.0-0.2); BASOPHILS % (AUTO) 0.4 % (0.0-2.0); EOSINOPHILS % (AUTO) 0.1 % (0.0-4.0); HEMATOCRIT 23.3 % (36-54); HEMOGLOBIN 7.6 g/dL (14.0-18.0); LYMPHOCYTES % (AUTO) 7.3 % (20.5-51.5); MEAN CORPUSCULAR HEMOGLOBIN 30 pg (27-31); MEAN CORPUSCULAR HGB CONC 33 % (32-36); MEAN CORPUSCULAR VOLUME 91 fL (79.0-98.0); MONOCYTES # (AUTO) 0.9 K/uL (0.0-1.0); MONOCYTES % (AUTO) 6.2 % (1.7-9.3); PLATELET COUNT (AUTO) 124 K/uL (130-430); RED BLOOD CELL COUNT(AUTO) 2.57 MIL/uL (4.2-6.2); RED CELL DISTRIBUTION WIDTH 22.4 % (9.0-15.0)
[2022-11-11 05:18] LABS: CALCIUM 8.7 mg/dL (8.4-11.0); CREATININE 1.7 mg/dL (0.55-1.30)
[2022-11-11] MEDS: METHYLPREDNISOLONE SOD SUCC 40 MG/ML VIAL IVP SCH (08:13)
[2022-11-11] MEDS: LACTULOSE 20 GM/30 ML UDC PO SCH ×2 (08:13→20:33)
[2022-11-11] MEDS: PANTOPRAZOLE SODIUM 40 MG/VIAL (PROTONIX) IVP SCH (08:13)
[2022-11-11] MEDS: THIAMINE HCL 100 MG TABLET PO SCH (08:14)
[2022-11-11] MEDS: FOLIC ACID 1 MG TABLET PO SCH (08:14)
[2022-11-11] MEDS: METOPROLOL TARTRATE 25 MG TABLET PO SCH ×3 (08:14→20:38)
[2022-11-11] MEDS: CEFEPIME 2 GM in D5W 100 ML IV SCH ×2 (08:15→20:33)
[2022-11-11] MEDS: HEPARIN SODIUM,PORCINE 5,000 UNITS/ML VIAL SUBCUT SCH ×2 (08:16→20:34)
[2022-11-11] MEDS: LEVOTHYROXINE SODIUM 100 MCG/5 ML VIAL IVP SCH (08:22)
[2022-11-11] MEDS: THEOPHYLLINE ANHYDROUS 80 MG/15 ML UDC PO SCH ×3 (08:25→20:33)
[2022-11-11] MEDS ORDERED: ATROPINE SULFATE 1 MG/10 ML SYRINGE IVP PRN (09:45)
[2022-11-11] MEDS: FLUCONAZOLE 200 mg/ NS 100 ML IV SCH (12:00)
[2022-11-11] MEDS: QUEtiapine FUMARATE 25 MG TABLET PO SCH (20:37)
[2022-11-12] VITALS (31 sets, daily range): BP systolic 107–168; PULSE 69–121; RESP 12–20; TEMP 96.4–98.4; O2SAT 95–100
[2022-11-12] MEDS: FENTANYL CITRATE-0.9 % NACL/PF 100 ML IV PRN ×3 (00:52→21:03)
[2022-11-12 05:12] LABS: BASOPHILS % (AUTO) 0.1 % (0.0-2.0); EOSINOPHILS % (AUTO) 0.1 % (0.0-4.0); HEMATOCRIT 24.4 % (36-54); LYMPHOCYTES # (AUTO) 0.6 K/uL (1.0-5.5); LYMPHOCYTES % (AUTO) 4.7 % (20.5-51.5); MEAN CORPUSCULAR HEMOGLOBIN 30 pg (27-31); MEAN CORPUSCULAR HGB CONC 33 % (32-36); MEAN CORPUSCULAR VOLUME 91 fL (79.0-98.0); MONOCYTES # (AUTO) 0.9 K/uL (0.0-1.0); MONOCYTES % (AUTO) 6.4 % (1.7-9.3); NEUTROPHILS # (AUTO) 12.1 K/uL (1.8-7.7); NEUTROPHILS % (AUTO) 88.7 % (40.0-70.0); PLATELET COUNT (AUTO) 131 K/uL (130-430); RED BLOOD CELL COUNT(AUTO) 2.67 MIL/uL (4.2-6.2); RED CELL DISTRIBUTION WIDTH 22.2 % (9.0-15.0); WHITE BLOOD COUNT (AUTO) 13.7 K/uL (4.8-10.8)
[2022-11-12 05:28] LABS: CALCIUM 8.5 mg/dL (8.4-11.0); CREATININE 1.73 mg/dL (0.55-1.30)
[2022-11-12] MEDS: PANTOPRAZOLE SODIUM 40 MG/VIAL (PROTONIX) IVP SCH (09:31)
[2022-11-12] MEDS: METHYLPREDNISOLONE SOD SUCC 40 MG/ML VIAL IVP SCH (09:31)
[2022-11-12] MEDS: THEOPHYLLINE ANHYDROUS 80 MG/15 ML UDC PO SCH ×3 (09:35→20:59)
[2022-11-12] MEDS: LACTULOSE 20 GM/30 ML UDC PO SCH ×2 (09:35→20:59)
[2022-11-12] MEDS: THIAMINE HCL 100 MG TABLET PO SCH (09:35)
[2022-11-12] MEDS: FOLIC ACID 1 MG TABLET PO SCH (09:36)
[2022-11-12] MEDS: LEVOTHYROXINE SODIUM 100 MCG/5 ML VIAL IVP SCH (09:36)
[2022-11-12] MEDS: CEFEPIME 2 GM in D5W 100 ML IV SCH ×2 (09:37→20:59)
[2022-11-12] MEDS: HEPARIN SODIUM,PORCINE 5,000 UNITS/ML VIAL SUBCUT SCH ×2 (09:39→21:02)
[2022-11-12] MEDS: MORPHINE 2 MG/ML INJ. SYRINGE IVP PRN (11:28)
[2022-11-12] MEDS: METOPROLOL TARTRATE 25 MG TABLET PO SCH ×2 (11:36→21:00)
[2022-11-12] MEDS: FLUCONAZOLE 200 mg/ NS 100 ML IV SCH (13:07)
[2022-11-12] MEDS: MIDAZOLAM IN NACL,ISO-OSMOT/PF 100 ML IV PRN (13:07)
[2022-11-12] MEDS: QUEtiapine FUMARATE 25 MG TABLET PO SCH (21:00)
[2022-11-13] VITALS (39 sets, daily range): BP systolic 104–163; PULSE 63–103; RESP 12–15; TEMP 96.4–97.6; O2SAT 86–100
[2022-11-13] MEDS: FENTANYL CITRATE-0.9 % NACL/PF 100 ML IV PRN ×2 (05:52→19:22)
[2022-11-13] MEDS: MIDAZOLAM IN NACL,ISO-OSMOT/PF 100 ML IV PRN ×2 (05:53→23:18)
[2022-11-13 06:14] LABS: ALBUMIN 1.4 g/dL (3.4-4.8); CALCIUM 8.2 mg/dL (8.4-11.0); CREATININE 1.69 mg/dL (0.55-1.30); PHOSPHORUS 3.1 mg/dL (2.7-4.5); TOTAL BILIRUBIN 0.4 mg/dL (0.0-1.0)
[2022-11-13 06:41] LABS: BASOPHILS % (AUTO) 0.2 % (0.0-2.0); EOSINOPHILS % (AUTO) 0.2 % (0.0-4.0); LYMPHOCYTES # (AUTO) 0.6 K/uL (1.0-5.5); LYMPHOCYTES % (AUTO) 4.2 % (20.5-51.5); MEAN CORPUSCULAR HEMOGLOBIN 30 pg (27-31); MEAN CORPUSCULAR HGB CONC 32 % (32-36); MEAN CORPUSCULAR VOLUME 92 fL (79.0-98.0); MONOCYTES # (AUTO) 0.7 K/uL (0.0-1.0); MONOCYTES % (AUTO) 5.1 % (1.7-9.3); NEUTROPHILS # (AUTO) 12.7 K/uL (1.8-7.7); NEUTROPHILS % (AUTO) 90.3 % (40.0-70.0); PLATELET COUNT (AUTO) 129 K/uL (130-430); RED BLOOD CELL COUNT(AUTO) 2.29 MIL/uL (4.2-6.2); RED CELL DISTRIBUTION WIDTH 23.9 % (9.0-15.0); WHITE BLOOD COUNT (AUTO) 14.1 K/uL (4.8-10.8)
[2022-11-13 07:04] LABS: HEMATOCRIT 21.2 % (36-54); HEMOGLOBIN 6.8 g/dL (14.0-18.0)
[2022-11-13] MEDS: CEFEPIME 2 GM in D5W 100 ML IV SCH (09:02)
[2022-11-13] MEDS: PANTOPRAZOLE SODIUM 40 MG/VIAL (PROTONIX) IVP SCH (09:03)
[2022-11-13] MEDS: METHYLPREDNISOLONE SOD SUCC 40 MG/ML VIAL IVP SCH (09:04)
[2022-11-13] MEDS: LEVOTHYROXINE SODIUM 100 MCG/5 ML VIAL IVP SCH (09:04)
[2022-11-13] MEDS: LACTULOSE 20 GM/30 ML UDC PO SCH ×2 (09:05→20:32)
[2022-11-13] MEDS: THEOPHYLLINE ANHYDROUS 80 MG/15 ML UDC PO SCH ×3 (09:05→22:30)
[2022-11-13] MEDS: HEPARIN SODIUM,PORCINE 5,000 UNITS/ML VIAL SUBCUT SCH (09:07)
[2022-11-13] MEDS: FOLIC ACID 1 MG TABLET PO SCH (09:08)
[2022-11-13] MEDS: METOPROLOL TARTRATE 25 MG TABLET PO SCH ×2 (09:09→22:31)
[2022-11-13] MEDS: THIAMINE HCL 100 MG TABLET PO SCH (09:12)
[2022-11-13] MEDS: FLUCONAZOLE 200 mg/ NS 100 ML IV SCH (12:02)
[2022-11-13] MEDS: NACL 0.9% 1,000 ML IV SCH (13:04)
[2022-11-13] MEDS: QUEtiapine FUMARATE 25 MG TABLET PO SCH (22:32)
[2022-11-14] VITALS (36 sets, daily range): BP systolic 106–156; PULSE 61–107; RESP 10–30; TEMP 97.2–97.9; O2SAT 95–99
[2022-11-14] MEDS: FENTANYL CITRATE-0.9 % NACL/PF 100 ML IV PRN ×2 (00:35→06:16)
[2022-11-14 09:17] LABS: BASOPHILS % (AUTO) 0.3 % (0.0-2.0); EOSINOPHILS # (AUTO) 0.1 K/uL (0.0-0.4); HEMATOCRIT 26.5 % (36-54); HEMOGLOBIN 8.7 g/dL (14.0-18.0); LYMPHOCYTES # (AUTO) 0.5 K/uL (1.0-5.5); LYMPHOCYTES % (AUTO) 4.2 % (20.5-51.5); MEAN CORPUSCULAR HEMOGLOBIN 31 pg (27-31); MEAN CORPUSCULAR HGB CONC 33 % (32-36); MEAN CORPUSCULAR VOLUME 92 fL (79.0-98.0); MONOCYTES # (AUTO) 0.2 K/uL (0.0-1.0); MONOCYTES % (AUTO) 1.7 % (1.7-9.3); NEUTROPHILS # (AUTO) 11.8 K/uL (1.8-7.7); NEUTROPHILS % (AUTO) 92.8 % (40.0-70.0); PLATELET COUNT (AUTO) 144 K/uL (130-430); RED BLOOD CELL COUNT(AUTO) 2.86 MIL/uL (4.2-6.2); RED CELL DISTRIBUTION WIDTH 21.3 % (9.0-15.0); WHITE BLOOD COUNT (AUTO) 12.8 K/uL (4.8-10.8)
[2022-11-14 09:33] LABS: ALBUMIN 1.5 g/dL (3.4-4.8); CALCIUM 8.3 mg/dL (8.4-11.0); CREATININE 1.7 mg/dL (0.55-1.30); PHOSPHORUS 3.4 mg/dL (2.7-4.5); TOTAL BILIRUBIN 0.4 mg/dL (0.0-1.0)
[2022-11-14] MEDS: PANTOPRAZOLE SODIUM 40 MG/VIAL (PROTONIX) IVP SCH (10:04)
[2022-11-14] MEDS: METHYLPREDNISOLONE SOD SUCC 40 MG/ML VIAL IVP SCH (10:05)
[2022-11-14] MEDS: LEVOTHYROXINE SODIUM 100 MCG/5 ML VIAL IVP SCH (10:05)
[2022-11-14] MEDS: FOLIC ACID 1 MG TABLET PO SCH (10:06)
[2022-11-14] MEDS: THEOPHYLLINE ANHYDROUS 80 MG/15 ML UDC PO SCH ×3 (10:06→21:23)
[2022-11-14] MEDS: LACTULOSE 20 GM/30 ML UDC PO SCH ×2 (10:06→21:00)
[2022-11-14] MEDS: METOPROLOL TARTRATE 25 MG TABLET PO SCH ×2 (10:08→21:24)
[2022-11-14] MEDS: THIAMINE HCL 100 MG TABLET PO SCH (10:09)
[2022-11-14] MEDS: NACL 0.9% 1,000 ML IV SCH (10:11)
[2022-11-14] MEDS: CEFEPIME 2 GM in D5W 100 ML IV SCH ×2 (10:12→21:25)
[2022-11-14] MEDS ORDERED: MAGNESIUM SULFATE 50 ML IV PRN (11:30)
[2022-11-14] MEDS: MIDAZOLAM IN NACL,ISO-OSMOT/PF 100 ML IV PRN (11:55)
[2022-11-14] MEDS: FLUCONAZOLE 200 mg/ NS 100 ML IV SCH (12:05)
[2022-11-14] MEDS: QUEtiapine FUMARATE 25 MG TABLET PO SCH (21:25)
[2022-11-15] VITALS (36 sets, daily range): BP systolic 113–170; PULSE 58–133; RESP 13–28; TEMP 97.1–98.5; O2SAT 95–99
[2022-11-15] MEDS: FENTANYL CITRATE-0.9 % NACL/PF 100 ML IV PRN ×2 (04:29→09:51)
[2022-11-15 05:48] LABS: BASOPHILS # (AUTO) 0.1 K/uL (0.0-0.2); BASOPHILS % (AUTO) 0.5 % (0.0-2.0); EOSINOPHILS % (AUTO) 0.3 % (0.0-4.0); HEMATOCRIT 24.5 % (36-54); HEMOGLOBIN 8.1 g/dL (14.0-18.0); LYMPHOCYTES # (AUTO) 0.4 K/uL (1.0-5.5); LYMPHOCYTES % (AUTO) 2.9 % (20.5-51.5); MEAN CORPUSCULAR HEMOGLOBIN 31 pg (27-31); MEAN CORPUSCULAR HGB CONC 33 % (32-36); MEAN CORPUSCULAR VOLUME 92 fL (79.0-98.0); MONOCYTES # (AUTO) 0.8 K/uL (0.0-1.0); MONOCYTES % (AUTO) 6.2 % (1.7-9.3); NEUTROPHILS # (AUTO) 11.4 K/uL (1.8-7.7); NEUTROPHILS % (AUTO) 90.1 % (40.0-70.0); PLATELET COUNT (AUTO) 148 K/uL (130-430); RED BLOOD CELL COUNT(AUTO) 2.66 MIL/uL (4.2-6.2); WHITE BLOOD COUNT (AUTO) 12.7 K/uL (4.8-10.8)
[2022-11-15 06:01] LABS: ALBUMIN 1.3 g/dL (3.4-4.8); CALCIUM 8.1 mg/dL (8.4-11.0); CREATININE 1.62 mg/dL (0.55-1.30); PHOSPHORUS 3.2 mg/dL (2.7-4.5); TOTAL BILIRUBIN 0.3 mg/dL (0.0-1.0)
[2022-11-15] MEDS: NACL 0.9% 1,000 ML IV SCH (06:43)
[2022-11-15] MEDS ORDERED: FUROSEMIDE 20 MG/2 ML VIAL IVP ONE (07:45)
[2022-11-15] MEDS: METHYLPREDNISOLONE SOD SUCC 40 MG/ML VIAL IVP SCH (09:00)
[2022-11-15] MEDS ORDERED: methylPREDNISolone SOD SUCC/PF 62.5 MG/ML VIAL ONE (09:20)
[2022-11-15] MEDS: PANTOPRAZOLE SODIUM 40 MG/VIAL (PROTONIX) IVP SCH (09:43)
[2022-11-15] MEDS: LEVOTHYROXINE SODIUM 100 MCG/5 ML VIAL IVP SCH (09:43)
[2022-11-15] MEDS: FOLIC ACID 1 MG TABLET PO SCH (09:45)
[2022-11-15] MEDS: THIAMINE HCL 100 MG TABLET PO SCH (09:45)
[2022-11-15] MEDS: LACTULOSE 20 GM/30 ML UDC PO SCH ×2 (09:46→21:30)
[2022-11-15] MEDS: THEOPHYLLINE ANHYDROUS 80 MG/15 ML UDC PO SCH ×3 (09:46→21:27)
[2022-11-15] MEDS: METOPROLOL TARTRATE 25 MG TABLET PO SCH ×2 (09:46→21:30)
[2022-11-15] MEDS: CEFEPIME 2 GM in D5W 100 ML IV SCH ×2 (09:47→21:26)
[2022-11-15] MEDS: MIDAZOLAM IN NACL,ISO-OSMOT/PF 100 ML IV PRN (09:50)
[2022-11-15] MEDS: QUEtiapine FUMARATE 25 MG TABLET PO SCH (21:31)
[2022-11-16] VITALS (35 sets, daily range): BP systolic 106–174; PULSE 59–120; RESP 9–24; TEMP 97.5–98.5; O2SAT 93–99
[2022-11-16] MEDS: LACTULOSE 20 GM/30 ML UDC PO SCH ×2 (09:03→21:25)
[2022-11-16] MEDS: FOLIC ACID 1 MG TABLET PO SCH (09:04)
[2022-11-16] MEDS: THIAMINE HCL 100 MG TABLET PO SCH (09:04)
[2022-11-16] MEDS: PANTOPRAZOLE SODIUM 40 MG/VIAL (PROTONIX) IVP SCH (09:05)
[2022-11-16] MEDS: CEFEPIME 2 GM in D5W 100 ML IV SCH ×2 (09:05→21:16)
[2022-11-16] MEDS: THEOPHYLLINE ANHYDROUS 80 MG/15 ML UDC PO SCH ×3 (09:06→21:20)
[2022-11-16] MEDS: LEVOTHYROXINE SODIUM 100 MCG/5 ML VIAL IVP SCH (09:06)
[2022-11-16] MEDS: METHYLPREDNISOLONE SOD SUCC 40 MG/ML VIAL IVP SCH (09:06)
[2022-11-16] MEDS: METOPROLOL TARTRATE 25 MG TABLET PO SCH ×2 (09:07→21:25)
[2022-11-16 09:24] LABS: BASOPHILS # (AUTO) 0.1 K/uL (0.0-0.2); BASOPHILS % (AUTO) 0.4 % (0.0-2.0); EOSINOPHILS % (AUTO) 0.1 % (0.0-4.0); HEMATOCRIT 26.5 % (36-54); HEMOGLOBIN 8.6 g/dL (14.0-18.0); LYMPHOCYTES # (AUTO) 0.4 K/uL (1.0-5.5); MEAN CORPUSCULAR HEMOGLOBIN 30 pg (27-31); MEAN CORPUSCULAR HGB CONC 32 % (32-36); MEAN CORPUSCULAR VOLUME 92 fL (79.0-98.0); MONOCYTES # (AUTO) 1.2 K/uL (0.0-1.0); MONOCYTES % (AUTO) 8.1 % (1.7-9.3); NEUTROPHILS # (AUTO) 13.1 K/uL (1.8-7.7); NEUTROPHILS % (AUTO) 88.4 % (40.0-70.0); PLATELET COUNT (AUTO) 161 K/uL (130-430); RED BLOOD CELL COUNT(AUTO) 2.87 MIL/uL (4.2-6.2); RED CELL DISTRIBUTION WIDTH 21.9 % (9.0-15.0); WHITE BLOOD COUNT (AUTO) 14.8 K/uL (4.8-10.8)
[2022-11-16 09:30] LABS: ALBUMIN 1.6 g/dL (3.4-4.8); CALCIUM 8.2 mg/dL (8.4-11.0); CREATININE 1.62 mg/dL (0.55-1.30); PHOSPHORUS 3.2 mg/dL (2.7-4.5); TOTAL BILIRUBIN 0.3 mg/dL (0.0-1.0)
[2022-11-16] MEDS ORDERED: hydrALAZINE HCL 20 MG/ML VIAL IVP PRN (13:00)
[2022-11-16] MEDS ORDERED: METOPROLOL TARTRATE 5 MG/5 ML VIAL IVP ONE (18:00)
[2022-11-16] MEDS: QUEtiapine FUMARATE 25 MG TABLET PO SCH (21:26)
[2022-11-17] VITALS (36 sets, daily range): BP systolic 118–161; PULSE 59–106; RESP 17–25; TEMP 97.8–98.1; O2SAT 94–100
[2022-11-17 05:32] LABS: BASOPHILS # (AUTO) 0.1 K/uL (0.0-0.2); BASOPHILS % (AUTO) 0.7 % (0.0-2.0); EOSINOPHILS # (AUTO) 0.1 K/uL (0.0-0.4); EOSINOPHILS % (AUTO) 0.4 % (0.0-4.0); HEMOGLOBIN 8.8 g/dL (14.0-18.0); LYMPHOCYTES # (AUTO) 0.8 K/uL (1.0-5.5); LYMPHOCYTES % (AUTO) 5.1 % (20.5-51.5); MEAN CORPUSCULAR HEMOGLOBIN 30 pg (27-31); MEAN CORPUSCULAR HGB CONC 33 % (32-36); MEAN CORPUSCULAR VOLUME 92 fL (79.0-98.0); MONOCYTES # (AUTO) 1.2 K/uL (0.0-1.0); MONOCYTES % (AUTO) 7.8 % (1.7-9.3); NEUTROPHILS # (AUTO) 12.9 K/uL (1.8-7.7); PLATELET COUNT (AUTO) 165 K/uL (130-430); RED BLOOD CELL COUNT(AUTO) 2.92 MIL/uL (4.2-6.2); RED CELL DISTRIBUTION WIDTH 21.4 % (9.0-15.0)
[2022-11-17 05:56] LABS: ALBUMIN 1.6 g/dL (3.4-4.8); CALCIUM 8.2 mg/dL (8.4-11.0); CREATININE 1.62 mg/dL (0.55-1.30); TOTAL BILIRUBIN 0.4 mg/dL (0.0-1.0)
[2022-11-17] MEDS: METHYLPREDNISOLONE SOD SUCC 40 MG/ML VIAL IVP SCH (10:04)
[2022-11-17] MEDS: PANTOPRAZOLE SODIUM 40 MG/VIAL (PROTONIX) IVP SCH (10:04)
[2022-11-17] MEDS: THIAMINE HCL 100 MG TABLET PO SCH (10:04)
[2022-11-17] MEDS: CEFEPIME 2 GM in D5W 100 ML IV SCH ×2 (10:04→21:11)
[2022-11-17] MEDS: LACTULOSE 20 GM/30 ML UDC PO SCH ×2 (10:05→21:09)
[2022-11-17] MEDS: METOPROLOL TARTRATE 25 MG TABLET PO SCH ×2 (10:05→21:10)
[2022-11-17] MEDS: FOLIC ACID 1 MG TABLET PO SCH (10:05)
[2022-11-17] MEDS: LEVOTHYROXINE SODIUM 100 MCG/5 ML VIAL IVP SCH (10:08)
[2022-11-17] MEDS: THEOPHYLLINE ANHYDROUS 80 MG/15 ML UDC PO SCH ×3 (10:26→21:10)
[2022-11-17] MEDS: QUEtiapine FUMARATE 25 MG TABLET PO SCH (21:09)
[2022-11-18] VITALS (34 sets, daily range): BP systolic 99–169; PULSE 53–93; RESP 18–26; TEMP 97.6–98.3; O2SAT 92–99
[2022-11-18] MEDS ORDERED: DEXMEDETOMIDINE HCL 200 MCG/2 ML VIAL IV ONE (03:14)
[2022-11-18 04:39] LABS: BASOPHILS # (AUTO) 0.1 K/uL (0.0-0.2); BASOPHILS % (AUTO) 0.6 % (0.0-2.0); EOSINOPHILS # (AUTO) 0.1 K/uL (0.0-0.4); EOSINOPHILS % (AUTO) 0.5 % (0.0-4.0); HEMATOCRIT 31.4 % (36-54); LYMPHOCYTES # (AUTO) 0.6 K/uL (1.0-5.5); MEAN CORPUSCULAR HEMOGLOBIN 30 pg (27-31); MEAN CORPUSCULAR HGB CONC 32 % (32-36); MEAN CORPUSCULAR VOLUME 92 fL (79.0-98.0); MONOCYTES # (AUTO) 0.9 K/uL (0.0-1.0); MONOCYTES % (AUTO) 6.1 % (1.7-9.3); NEUTROPHILS # (AUTO) 13.6 K/uL (1.8-7.7); NEUTROPHILS % (AUTO) 88.8 % (40.0-70.0); PLATELET COUNT (AUTO) 199 K/uL (130-430); RED CELL DISTRIBUTION WIDTH 20.9 % (9.0-15.0); WHITE BLOOD COUNT (AUTO) 15.3 K/uL (4.8-10.8)
[2022-11-18 05:08] LABS: ALBUMIN 1.8 g/dL (3.4-4.8); CALCIUM 8.6 mg/dL (8.4-11.0); CREATININE 1.61 mg/dL (0.55-1.30); TOTAL BILIRUBIN 0.5 mg/dL (0.0-1.0)
[2022-11-18] MEDS: METOPROLOL TARTRATE 25 MG TABLET PO SCH ×2 (08:56→20:12)
[2022-11-18] MEDS: THIAMINE HCL 100 MG TABLET PO SCH (09:00)
[2022-11-18] MEDS: FOLIC ACID 1 MG TABLET PO SCH (09:01)
[2022-11-18] MEDS: LACTULOSE 20 GM/30 ML UDC PO SCH ×2 (09:01→20:12)
[2022-11-18] MEDS: THEOPHYLLINE ANHYDROUS 80 MG/15 ML UDC PO SCH ×3 (09:04→20:12)
[2022-11-18] MEDS: PANTOPRAZOLE SODIUM 40 MG/VIAL (PROTONIX) IVP SCH (09:06)
[2022-11-18] MEDS: LEVOTHYROXINE SODIUM 100 MCG/5 ML VIAL IVP SCH (09:06)
[2022-11-18] MEDS: CEFEPIME 2 GM in D5W 100 ML IV SCH (09:07)
[2022-11-18] MEDS: PIPERACILLIN/TAZO 2.25G/DEX-IS 50 ML IV SCH ×2 (13:04→18:57)
[2022-11-18] MEDS ORDERED: METHYLPREDNISOLONE SOD SUCC 40 MG/ML VIAL IVP ONE (16:00)
[2022-11-18] MEDS: QUEtiapine FUMARATE 25 MG TABLET PO SCH (20:13)
[2022-11-19] VITALS (34 sets, daily range): BP systolic 112–169; PULSE 48–88; RESP 14–25; TEMP 97.6–98.4; O2SAT 91–100
[2022-11-19] MEDS: PIPERACILLIN/TAZO 2.25G/DEX-IS 50 ML IV SCH ×5 (05:34→23:30)
[2022-11-19 05:45] LABS: BASOPHILS # (AUTO) 0.1 K/uL (0.0-0.2); BASOPHILS % (AUTO) 0.8 % (0.0-2.0); EOSINOPHILS # (AUTO) 0.2 K/uL (0.0-0.4); EOSINOPHILS % (AUTO) 1.4 % (0.0-4.0); HEMATOCRIT 28.4 % (36-54); HEMOGLOBIN 9.1 g/dL (14.0-18.0); LYMPHOCYTES # (AUTO) 0.5 K/uL (1.0-5.5); LYMPHOCYTES % (AUTO) 3.6 % (20.5-51.5); MEAN CORPUSCULAR HEMOGLOBIN 30 pg (27-31); MEAN CORPUSCULAR HGB CONC 32 % (32-36); MEAN CORPUSCULAR VOLUME 93 fL (79.0-98.0); MONOCYTES # (AUTO) 0.6 K/uL (0.0-1.0); MONOCYTES % (AUTO) 4.4 % (1.7-9.3); NEUTROPHILS # (AUTO) 11.5 K/uL (1.8-7.7); NEUTROPHILS % (AUTO) 89.8 % (40.0-70.0); PLATELET COUNT (AUTO) 179 K/uL (130-430); RED BLOOD CELL COUNT(AUTO) 3.04 MIL/uL (4.2-6.2); RED CELL DISTRIBUTION WIDTH 21.5 % (9.0-15.0); WHITE BLOOD COUNT (AUTO) 12.8 K/uL (4.8-10.8)
[2022-11-19 06:06] LABS: CALCIUM 8.2 mg/dL (8.4-11.0); CREATININE 1.69 mg/dL (0.55-1.30)
[2022-11-19] MEDS ORDERED: METHYLPREDNISOLONE SOD SUCC 40 MG/ML VIAL IVP SCH (09:00)
[2022-11-19] MEDS: LEVOTHYROXINE SODIUM 100 MCG/5 ML VIAL IVP SCH (09:10)
[2022-11-19] MEDS: PANTOPRAZOLE SODIUM 40 MG/VIAL (PROTONIX) IVP SCH (09:14)
[2022-11-19] MEDS: THEOPHYLLINE ANHYDROUS 80 MG/15 ML UDC PO SCH ×3 (09:16→20:54)
[2022-11-19] MEDS: LACTULOSE 20 GM/30 ML UDC PO SCH ×2 (09:16→20:54)
[2022-11-19] MEDS: THIAMINE HCL 100 MG TABLET PO SCH (09:16)
[2022-11-19] MEDS: METOPROLOL TARTRATE 25 MG TABLET PO SCH ×2 (09:17→20:54)
[2022-11-19] MEDS: FOLIC ACID 1 MG TABLET PO SCH (09:17)
[2022-11-19] MEDS: POTASSIUM CHLORIDE 40 MEQ, LIDOCAINE JECT 2% PF 100 MG 50 MG in NS 250 ML IV PRN (16:06)
[2022-11-19] MEDS: QUEtiapine FUMARATE 25 MG TABLET PO SCH (20:54)
[2022-11-20] VITALS (35 sets, daily range): BP systolic 124–167; PULSE 49–103; RESP 17–31; TEMP 97.2–98.1; O2SAT 86–100
[2022-11-20 04:42] LABS: BASOPHILS # (AUTO) 0.1 K/uL (0.0-0.2); BASOPHILS % (AUTO) 0.7 % (0.0-2.0); EOSINOPHILS # (AUTO) 0.1 K/uL (0.0-0.4); EOSINOPHILS % (AUTO) 0.8 % (0.0-4.0); HEMATOCRIT 27.1 % (36-54); HEMOGLOBIN 8.6 g/dL (14.0-18.0); LYMPHOCYTES # (AUTO) 0.6 K/uL (1.0-5.5); LYMPHOCYTES % (AUTO) 5.6 % (20.5-51.5); MEAN CORPUSCULAR HEMOGLOBIN 29 pg (27-31); MEAN CORPUSCULAR HGB CONC 32 % (32-36); MEAN CORPUSCULAR VOLUME 93 fL (79.0-98.0); MONOCYTES # (AUTO) 0.6 K/uL (0.0-1.0); MONOCYTES % (AUTO) 5.3 % (1.7-9.3); NEUTROPHILS # (AUTO) 9.7 K/uL (1.8-7.7); NEUTROPHILS % (AUTO) 87.6 % (40.0-70.0); PLATELET COUNT (AUTO) 159 K/uL (130-430); RED BLOOD CELL COUNT(AUTO) 2.92 MIL/uL (4.2-6.2); RED CELL DISTRIBUTION WIDTH 20.9 % (9.0-15.0); WHITE BLOOD COUNT (AUTO) 11.1 K/uL (4.8-10.8)
[2022-11-20 04:54] LABS: ALBUMIN 1.6 g/dL (3.4-4.8); CALCIUM 8.4 mg/dL (8.4-11.0); CREATININE 1.73 mg/dL (0.55-1.30); TOTAL BILIRUBIN 0.6 mg/dL (0.0-1.0)
[2022-11-20] MEDS: PIPERACILLIN/TAZO 2.25G/DEX-IS 50 ML IV SCH ×3 (05:04→18:52)
[2022-11-20] MEDS: METOPROLOL TARTRATE 25 MG TABLET PO SCH ×2 (09:00→22:21)
[2022-11-20] MEDS: PANTOPRAZOLE SODIUM 40 MG/VIAL (PROTONIX) IVP SCH (09:54)
[2022-11-20] MEDS: FOLIC ACID 1 MG TABLET PO SCH (09:54)
[2022-11-20] MEDS: LACTULOSE 20 GM/30 ML UDC PO SCH ×2 (09:54→21:00)
[2022-11-20] MEDS: THIAMINE HCL 100 MG TABLET PO SCH (09:54)
[2022-11-20] MEDS: THEOPHYLLINE ANHYDROUS 80 MG/15 ML UDC PO SCH ×3 (09:57→22:20)
[2022-11-20] MEDS: LEVOTHYROXINE SODIUM 100 MCG/5 ML VIAL IVP SCH (09:57)
[2022-11-20] MEDS ORDERED: methylPREDNISolone SOD SUCC/PF 62.5 MG/ML VIAL IVP ONE (10:00)
[2022-11-20] MEDS: POTASSIUM CHLORIDE 40 MEQ, LIDOCAINE JECT 2% PF 100 MG 50 MG in NS 250 ML IV PRN (15:53)
[2022-11-21] VITALS (36 sets, daily range): BP systolic 132–175; PULSE 46–85; RESP 18–29; TEMP 96.7–98; O2SAT 90–100
[2022-11-21] MEDS: PIPERACILLIN/TAZO 2.25G/DEX-IS 50 ML IV SCH ×2 (00:44→05:00)
[2022-11-21 05:44] LABS: BASOPHILS # (AUTO) 0.1 K/uL (0.0-0.2); BASOPHILS % (AUTO) 0.6 % (0.0-2.0); EOSINOPHILS # (AUTO) 0.2 K/uL (0.0-0.4); EOSINOPHILS % (AUTO) 1.3 % (0.0-4.0); HEMATOCRIT 27.7 % (36-54); HEMOGLOBIN 8.8 g/dL (14.0-18.0); LYMPHOCYTES # (AUTO) 0.8 K/uL (1.0-5.5); LYMPHOCYTES % (AUTO) 6.7 % (20.5-51.5); MEAN CORPUSCULAR HEMOGLOBIN 30 pg (27-31); MEAN CORPUSCULAR HGB CONC 32 % (32-36); MEAN CORPUSCULAR VOLUME 93 fL (79.0-98.0); MONOCYTES # (AUTO) 0.6 K/uL (0.0-1.0); MONOCYTES % (AUTO) 5.3 % (1.7-9.3); NEUTROPHILS # (AUTO) 10.2 K/uL (1.8-7.7); NEUTROPHILS % (AUTO) 86.1 % (40.0-70.0); PLATELET COUNT (AUTO) 149 K/uL (130-430); RED BLOOD CELL COUNT(AUTO) 2.98 MIL/uL (4.2-6.2); RED CELL DISTRIBUTION WIDTH 20.9 % (9.0-15.0); WHITE BLOOD COUNT (AUTO) 11.9 K/uL (4.8-10.8)
[2022-11-21 05:52] LABS: CALCIUM 8.3 mg/dL (8.4-11.0); CREATININE 1.64 mg/dL (0.55-1.30)
[2022-11-21] MEDS: LACTULOSE 20 GM/30 ML UDC PO SCH (07:53)
[2022-11-21] MEDS: PANTOPRAZOLE SODIUM 40 MG/VIAL (PROTONIX) IVP SCH (08:56)
[2022-11-21] MEDS: THEOPHYLLINE ANHYDROUS 80 MG/15 ML UDC PO SCH ×3 (08:56→21:16)
[2022-11-21] MEDS: THIAMINE HCL 100 MG TABLET PO SCH (08:57)
[2022-11-21] MEDS: METOPROLOL TARTRATE 25 MG TABLET PO SCH ×2 (08:57→21:00)
[2022-11-21] MEDS: methylPREDNISolone SOD SUCC/PF 62.5 MG/ML VIAL IVP SCH (08:57)
[2022-11-21] MEDS: FOLIC ACID 1 MG TABLET PO SCH (08:57)
[2022-11-21] MEDS: LEVOTHYROXINE SODIUM 100 MCG/5 ML VIAL IVP SCH (09:01)
[2022-11-21] MEDS: POTASSIUM CHLORIDE 40 MEQ, LIDOCAINE JECT 2% PF 100 MG 50 MG in NS 250 ML IV PRN (09:02)
[2022-11-21] MEDS ORDERED: KCL 20 mEq in 100 mL (PREMIX) 100 ML IV ONE (09:15)
[2022-11-21 10:35] LABS: PROTHROMBIN TIME 10.8 SECS (9.5-12.5)
[2022-11-22] VITALS (34 sets, daily range): BP systolic 139–170; PULSE 48–97; RESP 14–24; TEMP 96.4–97.8; O2SAT 94–100
[2022-11-22 05:20] LABS: BASOPHILS # (AUTO) 0.1 K/uL (0.0-0.2); BASOPHILS % (AUTO) 0.8 % (0.0-2.0); EOSINOPHILS # (AUTO) 0.3 K/uL (0.0-0.4); EOSINOPHILS % (AUTO) 2.3 % (0.0-4.0); HEMATOCRIT 26.8 % (36-54); HEMOGLOBIN 8.5 g/dL (14.0-18.0); LYMPHOCYTES # (AUTO) 1.1 K/uL (1.0-5.5); LYMPHOCYTES % (AUTO) 9.6 % (20.5-51.5); MEAN CORPUSCULAR HEMOGLOBIN 29 pg (27-31); MEAN CORPUSCULAR HGB CONC 32 % (32-36); MEAN CORPUSCULAR VOLUME 93 fL (79.0-98.0); MONOCYTES # (AUTO) 0.6 K/uL (0.0-1.0); MONOCYTES % (AUTO) 4.9 % (1.7-9.3); NEUTROPHILS # (AUTO) 9.7 K/uL (1.8-7.7); NEUTROPHILS % (AUTO) 82.4 % (40.0-70.0); PLATELET COUNT (AUTO) 166 K/uL (130-430); RED BLOOD CELL COUNT(AUTO) 2.89 MIL/uL (4.2-6.2); WHITE BLOOD COUNT (AUTO) 11.8 K/uL (4.8-10.8)
[2022-11-22 05:33] LABS: CALCIUM 8.2 mg/dL (8.4-11.0); CREATININE 1.46 mg/dL (0.55-1.30)
[2022-11-22] MEDS: THEOPHYLLINE ANHYDROUS 80 MG/15 ML UDC PO SCH ×3 (08:24→20:01)
[2022-11-22] MEDS: FOLIC ACID 1 MG TABLET PO SCH (08:25)
[2022-11-22] MEDS: METOPROLOL TARTRATE 25 MG TABLET PO SCH ×2 (08:25→20:02)
[2022-11-22] MEDS: THIAMINE HCL 100 MG TABLET PO SCH (08:25)
[2022-11-22] MEDS: methylPREDNISolone SOD SUCC/PF 62.5 MG/ML VIAL IVP SCH (09:19)
[2022-11-22] MEDS: PANTOPRAZOLE SODIUM 40 MG/VIAL (PROTONIX) IVP SCH (09:19)
[2022-11-22] MEDS: LEVOTHYROXINE SODIUM 100 MCG/5 ML VIAL IVP SCH (09:20)
[2022-11-22] MEDS: POTASSIUM CHLORIDE 40 MEQ, LIDOCAINE JECT 2% PF 100 MG 50 MG in NS 250 ML IV PRN (11:55)
[2022-11-22] MEDS ORDERED: NS IRRIG SOLN 1000 ML IR ONE (14:13)
[2022-11-22] MEDS ORDERED: SEVOFLURANE 15 MIN GAS INH ONE (14:13)
[2022-11-22] MEDS ORDERED: NS 1000 ML IV.SOLN IV ONE (14:13)
[2022-11-22] MEDS ORDERED: LIDOCAINE 1% 10 MG/ML, 20 ML MDV ONE (14:13)
[2022-11-22] MEDS ORDERED: ROCURONIUM BROMIDE 10 MG/ML (ZEMURON) ONE (14:13)
[2022-11-22] MEDS ORDERED: GLYCOPYRROLATE 0.2 MG/ML VIAL ONE (14:13)
[2022-11-22] MEDS: CEFEPIME 2 GM in D5W 100 ML IV SCH (20:02)
[2022-11-22] MEDS: HYDROmorphone 1 MG/ML INJ. CARTRIDGE IVP PRN (23:05)
[2022-11-23] VITALS (33 sets, daily range): BP systolic 95–197; PULSE 58–127; RESP 12–32; TEMP 96.4–97; O2SAT 91–98
[2022-11-23] MEDS: HYDROmorphone 1 MG/ML INJ. CARTRIDGE IVP PRN ×4 (03:06→16:28)
[2022-11-23 06:08] LABS: BASOPHILS # (AUTO) 0.1 K/uL (0.0-0.2); BASOPHILS % (AUTO) 0.9 % (0.0-2.0); EOSINOPHILS # (AUTO) 0.3 K/uL (0.0-0.4); EOSINOPHILS % (AUTO) 1.9 % (0.0-4.0); HEMATOCRIT 32.2 % (36-54); LYMPHOCYTES # (AUTO) 1.3 K/uL (1.0-5.5); MEAN CORPUSCULAR HEMOGLOBIN 29 pg (27-31); MEAN CORPUSCULAR HGB CONC 31 % (32-36); MEAN CORPUSCULAR VOLUME 94 fL (79.0-98.0); MONOCYTES # (AUTO) 0.6 K/uL (0.0-1.0); MONOCYTES % (AUTO) 3.5 % (1.7-9.3); NEUTROPHILS # (AUTO) 13.7 K/uL (1.8-7.7); NEUTROPHILS % (AUTO) 85.7 % (40.0-70.0); PLATELET COUNT (AUTO) 236 K/uL (130-430); RED BLOOD CELL COUNT(AUTO) 3.41 MIL/uL (4.2-6.2); RED CELL DISTRIBUTION WIDTH 19.8 % (9.0-15.0)
[2022-11-23 06:29] LABS: CALCIUM 8.6 mg/dL (8.4-11.0); CREATININE 1.52 mg/dL (0.55-1.30)
[2022-11-23] MEDS: METOPROLOL TARTRATE 25 MG TABLET PO SCH ×2 (09:00→12:19)
[2022-11-23] MEDS: CEFEPIME 2 GM in D5W 100 ML IV SCH ×2 (09:51→20:46)
[2022-11-23] MEDS: THEOPHYLLINE ANHYDROUS 80 MG/15 ML UDC PO SCH ×3 (09:54→20:45)
[2022-11-23] MEDS: FOLIC ACID 1 MG TABLET PO SCH (09:54)
[2022-11-23] MEDS: THIAMINE HCL 100 MG TABLET PO SCH (09:55)
[2022-11-23] MEDS: PANTOPRAZOLE SODIUM 40 MG/VIAL (PROTONIX) IVP SCH (09:56)
[2022-11-23] MEDS: methylPREDNISolone SOD SUCC/PF 62.5 MG/ML VIAL IVP SCH (10:00)
[2022-11-23] MEDS: LEVOTHYROXINE SODIUM 100 MCG/5 ML VIAL IVP SCH (10:36)
[2022-11-23] MEDS: FENTANYL CITRATE-0.9 % NACL/PF 100 ML IV PRN (19:21)
== END 2022-11-23 22:49 | DRG 4 ==
LOC: SED 11:00 → SIC 13:32
PROVIDERS: ADMIT General Practice; ATTEND General Practice
PROC: 5A1955Z Respiratory Ventilation, Greater than 96 Consecutive Hours (ICD-10-PCS; principal; 2022-10-30)
PROC: 02HV33Z Insertion of Infusion Device into Superior Vena Cava, Percutaneous Approach (ICD-10-PCS; 2022-10-30)
PROC: B548ZZA Ultrasonography of Superior Vena Cava, Guidance (ICD-10-PCS; 2022-10-30)
PROC: 0BH17EZ Insertion of Endotracheal Airway into Trachea, Via Natural or Artificial Opening (ICD-10-PCS; 2022-10-30)
PROC: 30233N1 Transfusion of Nonautologous Red Blood Cells into Peripheral Vein, Percutaneous Approach (ICD-10-PCS; 2022-11-10)
PROC: 0B110F4 Bypass Trachea to Cutaneous with Tracheostomy Device, Open Approach (ICD-10-PCS; 2022-11-22)
PROC: 0DH63UZ Insertion of Feeding Device into Stomach, Percutaneous Approach (ICD-10-PCS; 2022-11-22)
DX: A41.9 Sepsis, unspecified organism (principal); E43 Unspecified severe protein-calorie malnutrition; J69.0 Pneumonitis due to inhalation of food and vomit; J96.01 Acute respiratory failure with hypoxia; G93.41 Metabolic encephalopathy; R65.21 Severe sepsis with septic shock; N17.0 Acute kidney failure with tubular necrosis; E03.5 Myxedema coma; J15.6 Pneumonia due to other Gram-negative bacteria; I50.43 Acute on chronic combined systolic (congestive) and diastolic (congestive) heart failure; D61.818 Other pancytopenia; G93.1 Anoxic brain damage, not elsewhere classified; M62.82 Rhabdomyolysis; H54.62 Unqualified visual loss, left eye, normal vision right eye; E03.9 Hypothyroidism, unspecified; E83.51 Hypocalcemia; D63.8 Anemia in other chronic diseases classified elsewhere; K70.9 Alcoholic liver disease, unspecified; K76.82 Hepatic encephalopathy; R00.1 Bradycardia, unspecified; D64.9 Anemia, unspecified; Z20.822 Contact with and (suspected) exposure to COVID-19; R13.10 Dysphagia, unspecified; R68.0 Hypothermia, not associated with low environmental temperature; F10.20 Alcohol dependence, uncomplicated; Y90.9 Presence of alcohol in blood, level not specified; E86.0 Dehydration; I11.0 Hypertensive heart disease with heart failure; Z87.820 Personal history of traumatic brain injury; Z79.899 Other long term (current) drug therapy; Z72.0 Tobacco use; Z68.20 Body mass index [BMI] 20.0-20.9, adult
CPT/HCPCS: 36415; 36600; 70450-TC; 71045; 74018; 76376; 76604; 76700-TC; 76705; 78226; 80048; 80053; 80202; 80307; 81000; 82009; 82140; 82272; 82533; 82550; 82553; 82607; 82728; 82746; 82803; 82962; 83037; 83540; 83550; 83605; 83735; 83880; 84100; 84436; 84439; 84443; 84478; 84484; 85018; 85025; 85610-TC; 85730-TC; 86140; 86886; 86900; 86901; 86920; 87040; 87070-TC; 87081; 87101; 87205-TC; 93005; 93306; 93970; 94002; 94003; 94640; 94760; 96361; 96374; 99291; A9537; C9113; G0480; G0481; G0482; J0360; J0461; J0610; J0692; J1030; J1170; J1265; J1450; J1644; J1815; J1940; J1956; J2001; J2060; J2270; J2543; J2704; J2930; J3010; J3370; J3475; J3480; J3490; J7030; J7042; J7050; J7060; P9021; P9046